=== PATIENT | female | born 1990 | race Caucasian/White ===

== ENCOUNTER → 2020-09-24 | Outpatient (CLI) | payer OTHER ==
[~2020-09-24] MED LIST: ACETAMINOPHEN-1 EAC1 PO; ASPIRIN325 MG PO; CLINDAMYCIN HC300 MG PO; FLONASE 0.05% N16 GM; HYDROCHLOROTH12.5 MG PO; IBU800 MG PO; LINZESS145 MCG PO; LISINOPRIL10 MG PO; NEURONTIN 100100 MG PO; NORCO 7.5-3251 EACH PO; TOPIRAMATE50 MG PO; VITAMIN C500 M4 PO
== END ==
LOC: NM 08-17 14:30
DX: K21.9 Gastro-esophageal reflux disease without esophagitis (principal); R10.13 Epigastric pain; R93.5 Abnormal findings on diagnostic imaging of other abdominal regions, including retroperitoneum
CPT/HCPCS: 78264; A9541

== ENCOUNTER → 2021-05-10 | Outpatient (CLI) | payer OTHER | LOC: KOH-I 13:12 | DX: M79.672 Pain in left foot (principal) | CPT/HCPCS: 73630 ==

== ENCOUNTER → 2021-06-07 | Outpatient (CLI) | payer OTHER | LOC: KOH-I 13:38 | DX: S92.812A Other fracture of left foot, initial encounter for closed fracture (principal) | CPT/HCPCS: 73630 ==

== ENCOUNTER → 2021-07-05 | Outpatient (CLI) | payer OTHER | LOC: KOH-I 08:13 | DX: S92.332A Displaced fracture of third metatarsal bone, left foot, initial encounter for closed fracture (principal); S92.342A Displaced fracture of fourth metatarsal bone, left foot, initial encounter for closed fracture | CPT/HCPCS: 73630 ==

== ENCOUNTER → 2021-07-14 | Outpatient (CLI) | payer OTHER | LOC: KOH-I 15:12 | DX: M84.375A Stress fracture, left foot, initial encounter for fracture (principal) | CPT/HCPCS: 73718 ==

== ENCOUNTER → 2021-09-22 | Outpatient (CLI) | payer OTHER | LOC: KOH-I 09-13 14:30 | DX: M47.816 Spondylosis without myelopathy or radiculopathy, lumbar region (principal); M51.26 Other intervertebral disc displacement, lumbar region | CPT/HCPCS: 72148 ==

== ENCOUNTER → 2022-01-10 | Outpatient (CLI) | payer OTHER | LOC: KOH-I 10:44 | DX: M79.672 Pain in left foot (principal) | CPT/HCPCS: 73630 ==